=== PATIENT | female | born 1960 | race Caucasian/White ===

== ENCOUNTER 2017-06-23 15:29 | Inpatient (IN) | payer BC ==
[~2017-06-23] VITALS: Ht 175.3 cm; Wt 81.8 kg
--- NOTE | ~2017-06-23 | OP ---
PATIENT NAME: DEYSI MCALLISTER MEDICAL RECORD: [id number] :62 LOCATION:[id number] ADMISSION DATE:06/23/17 SURGEON: MINGO STRATTON MD DATE OF OPERATION: 06/23/2017 PREOPERATIVE DIAGNOSES: 1. Acute appendicitis with localized peritonitis. 2. Migraines. POSTOPERATIVE DIAGNOSES: 1. Acute appendicitis with localized peritonitis. 2. Migraines. PROCEDURE: Laparoscopic appendectomy. SURGEON: Mingo Stratton MD REPORT OF PROCEDURE: The patient's abdomen was prepped and draped in sterile fashion. A skin incision was made just above the umbilicus, 0 Vicryls were placed in the fascia bilaterally and the fascia was incised with 15-blade. I then bluntly entered the abdominal cavity and placed a 12-mm Kirby port. Under direct visualization, a 5 mm trocar was placed in the left lower quadrant and another was placed in the suprapubic region. The appendix was easily visualized in the retrocecal state. It was inflamed throughout, but not gangrenous or perforated. There was no sign of any abscesses present. Base of the appendix was visualized and a window was made in the mesoappendix. The mesoappendix was transected with a 45 white load Endo-DAVID stapler and the appendix was transected at its base using a 45 blue load Endo-DAVID stapler. The appendix was placed into an Endo Catch bag. We then irrigated out the right lower quadrant. Any bleeding from the staple lines were treated with electrocautery. At the conclusion of the case, there was no sign of any active bleeding. At this point, the ports and insufflation were then removed and the appendix was taken out through the umbilicus. The umbilical fascia was closed with interrupted 0 Vicryls times 2. The wounds were irrigated out with normal saline and infused with 10 mL of 0.25% Marcaine with epinephrine. The skin incisions were closed with subcutaneous 5-0 Monocryl and dressed appropriately. COMPLICATIONS: None. CONDITION: Stable. ANESTHESIA: General endotracheal and local. BLOOD LOSS: Minimal. TRANSINT:[id number] Voice Confirmation ID: [id number] DOCUMENT ID: [id number] OPERATIVE REPORT [id number] DEYSI MCALLISTER MINGO STRATTON MD at 1319 CC: MODESTO PEREZ MD [id number] DICTATION DATE: 06/23/172042 DATA PROCESSOR: 06/24/17 0048 DIS IN 06/24/17 [facility] [address] [place] [address]
[2017-06-23 21:07] VITALS: BP 126/65
[2017-06-23 21:13] VITALS: BP 120/72
[2017-06-23] MEDS ORDERED: IMITREX100 MG PO (22:14)
[2017-06-23] MEDS ORDERED: PROPRANOLOL HCL80 MG PO (22:15)
[2017-06-24 01:22] VITALS: BP 126/65; Ht 175.3 cm; Wt 81.8 kg
[2017-06-24 01:58] VITALS: BP 96/55
[2017-06-24 08:53] VITALS: BP 103/53
[2017-06-24 11:34] VITALS: BP 105/52
[2017-06-24] MEDS ORDERED: HYDROCODONE-APA1 TAB PO (11:52)
== END 2017-06-24 12:00 | disposition home or self-care (01) | DRG 340 ==
LOC: D.CT 15:29 → D.MS 17:50
PROVIDERS: Surgery
PROC: 0DTJ4ZZ Resection of Appendix, Percutaneous Endoscopic Approach (ICD-10-PCS; principal; 2017-06-23 19:30)
DX: K35.3 Acute appendicitis with localized peritonitis (principal); G43.909 Migraine, unspecified, not intractable, without status migrainosus